=== PATIENT | female | born 1990 | race Caucasian/White ===

== ENCOUNTER 2017-05-05 18:40 | Emergency (ER) | payer OTHER ==
[~2017-05-05] VITALS: Ht 162.6 cm; Wt 81.7 kg
[~2017-05-05 18:40] MED LIST: AMOXICILLIN 50500 M1 PO; FLAGYL500 MG PO; FLEXERIL PO; IBUPROFEN 600600 M1 PO; LEVAQUIN 750 M750 MG PO; NOHOMEMEDICATIONS; NORCO 5-325 TA1 EACH PO; ONDANSETRON HCL4 M2 PO; TRINATE TABLET1 TAB PO
[2017-05-05 18:41] VITALS: BP 112/78
[2017-05-05] MEDS ORDERED: BACTRIM DS TAB1 EACH PO (18:59)
== END 2017-05-05 19:19 | disposition home or self-care (01) ==
LOC: ER 18:40
DX: L02.415 Cutaneous abscess of right lower limb (principal); L02.413 Cutaneous abscess of right upper limb; L02.211 Cutaneous abscess of abdominal wall; F17.210 Nicotine dependence, cigarettes, uncomplicated

== ENCOUNTER 2018-04-28 09:51 | Emergency (ER) | payer OTHER ==
[~2018-04-28] VITALS: Ht 162.6 cm; Wt 72.6 kg
[~2018-04-28 09:51] MED LIST changes: +BACTRIM DS TAB1 EACH PO
[2018-04-28] MEDS ORDERED: MOBIC15 MG PO (10:30)
[2018-04-28] MEDS ORDERED: FLEXERIL PO (10:30)
[2018-04-28 11:52] VITALS: BP 106/77
== END 2018-04-28 10:40 | disposition home or self-care (01) ==
LOC: ER 09:51
DX: M25.562 Pain in left knee (principal); M25.561 Pain in right knee; F17.210 Nicotine dependence, cigarettes, uncomplicated; V89.0XXA Person injured in unspecified motor-vehicle accident, nontraffic, initial encounter; Y93.89 Activity, other specified; Y92.89 Other specified places as the place of occurrence of the external cause; Y99.8 Other external cause status